=== PATIENT | female | born 1985 | race Caucasian/White ===

== ENCOUNTER 2017-08-19 07:52 | Emergency (ER) | payer SELFPAY ==
[2017-08-19] MEDS ORDERED: ONDANSETRON HCL INJ/PF 4 MG/2 ML SDV IV ONE (08:05)
[2017-08-19] MEDS ORDERED: NORMAL SALINE 1000 ML 1,000 ML IV ONE (08:06)
[2017-08-19] MEDS ORDERED: MORPHINE SULFATE 10 MG/ML INJ IV ONE (08:26)
[2017-08-19 08:35] LABS: ABSOLUTE BASOPHILS # (AUTO) 0.1 10^3/uL (0.0-0.2); ABSOLUTE EOSINOPHILS # (AUTO) 0.2 10^3/uL (0.0-0.6); ABSOLUTE MONOCYTES (AUTO) 0.5 10^3/uL (0.1-1.4); ABSOLUTE NEUT (AUTO) 14.6 10^3/uL (1.7-8.2); BASOPHILS % (AUTO) 0.4 % (0-2); EOSINOPHILS % (AUTO) 1.1 % (0-6); HEMATOCRIT 43.7 % (36.0-47.0); HEMOGLOBIN 14.5 g/dL (12.0-15.5); LYMPHOCYTES % (AUTO) 6.3 % (13-45); MEAN CORPUSCULAR HEMOGLOBIN 29.8 pg (27.0-33.4); MEAN CORPUSCULAR HGB CONC 33.3 g/dL (32.0-36.0); MEAN CORPUSCULAR VOLUME 90 fl (80-97); MONOCYTES % (AUTO) 2.8 % (3-13); PLATELET COUNT 263 10^3/uL (150-450); RED BLOOD COUNT 4.88 10^6/uL (3.72-5.28); RED CELL DISTRIBUTION WIDTH 13.3 % (11.5-14.0); SEGMENTED NEUTROPHILS % (AUTO) 89.4 % (42-78); TOTAL CELLS COUNTED % (AUTO) 100 %; WHITE BLOOD COUNT 16.4 10^3/uL (4.0-10.5)
[2017-08-19 08:54] LABS: ALANINE AMINOTRANSFERASE 33 U/L (9-52); ALBUMIN 3.9 g/dL (3.5-5.0); ALKALINE PHOSPHATASE 96 U/L (38-126); ANION GAP 8 (5-19); ASPARTATE AMINO TRANSFERASE 19 U/L (14-36); BILIRUBIN,DIRECT 0.2 mg/dL (0.0-0.4); BILIRUBIN,TOTAL 0.4 mg/dL (0.2-1.3); BLOOD UREA NITROGEN 8 mg/dL (7-20); CALCIUM 9.4 mg/dL (8.4-10.2); CARBON DIOXIDE 28 mmol/L (22-30); CHLORIDE 106 mmol/L (98-107); GLUCOSE 114 mg/dL (75-110); LIPASE 36.1 U/L (23-300); POTASSIUM 4.4 mmol/L (3.6-5.0); SODIUM 142.3 mmol/L (137-145); TOTAL PROTEIN 6.7 g/dL (6.3-8.2)
[2017-08-19] MEDS ORDERED: AMPICILLIN SOD/SULBACTAM 3 GM VIAL IV ONE (08:57)
--- NOTE | 2017-08-19 09:28 | ER Document Report ---
ED GI/ - General Chief Complaint: Abdominal Pain Stated Complaint: NAUSEA Time Seen by Provider: 08/19/17 08:05 Mode of Arrival: Ambulatory Information source: Patient Notes: Patient is a 32-year-old female who presents to the ER today for right upper quadrant abdominal pain that woke her out of sleep at 1 AM this morning with nausea and vomiting. Patient states that she had this also on 15 August that lasted approximately one day but subsided. Patient states last night for dinner she had fried sausage, fried eggs and toast. She states that she used to work third shift so she eats a lot of greasy food and fast food. She denies ever having issues with her gallbladder before. She denies fever that she knows of but states that she is sweaty and clammy and having chills with the pain since 1 AM. She denies any diarrhea. TRAVEL OUTSIDE OF THE [place] IN LAST 30 DAYS: No - Related Data Allergies/Adverse Reactions: No Known Allergies Allergy (Verified 08/19/17 07:57) Past Medical History - General Information source: Patient - Social History Smoking Status: Never Smoker Chew tobacco use (# tins/day): No Frequency of alcohol use: None Drug Abuse: Marijuana Family History: Reviewed & Not Pertinent Patient has suicidal ideation: No Patient has homicidal ideation: No Renal/ Medical History: Denies: Hx Peritoneal Dialysis Past Surgical History: Reports: Hx Tonsillectomy - Immunizations Hx Diphtheria, Pertussis, Tetanus Vaccination: Yes - 2008 Review of Systems - Review of Systems Constitutional: No symptoms reported EENT: No symptoms reported Cardiovascular: No symptoms reported Respiratory: No symptoms reported Gastrointestinal: See HPI Genitourinary: No symptoms reported Female Genitourinary: No symptoms reported Musculoskeletal: No symptoms reported Skin: No symptoms reported Hematologic/Lymphatic: No symptoms reported Neurological/Psychological: No symptoms reported Physical Exam - Vital signs Vitals: Temp Pulse Resp BP Pulse Ox 97.5 F 64 16 151/92 H 100 08/19/17 07:55 08/19/17 07:55 08/19/17 07:55 08/19/17 07:55 08/19/17 07:55 - Notes Notes: PHYSICAL EXAMINATION: GENERAL: Obviously uncomfortable, in mild acute distress. HEAD: Atraumatic, normocephalic. EYES: Pupils equal round and reactive to light, extraocular movements intact, sclera anicteric, conjunctiva are normal. NECK: Normal range of motion, supple without lymphadenopathy LUNGS: CTAB and equal. No wheezes rales or rhonchi. HEART: Regular rate and rhythm without murmurs ABDOMEN: Soft, right upper quadrant, epigastric tenderness. No guarding, no rebound BACK: no vertebral tenderness, normal ROM GI/: no CVA tenderness EXTREMITIES: Normal range of motion, no pitting edema. No cyanosis. NEUROLOGICAL: Cranial nerves grossly intact. Normal sensory/motor exams. PSYCH: Normal mood, normal affect. SKIN: Warm, Dry, normal turgor, no rashes or lesions noted Course - Re-evaluation Re-evalutation: 08/19/17 10:12 Patient has a white count is 16.4, Unasyn was started preemptively. Ultrasound reveals gallstones but no thickening, inflammation or signs of cholecystitis. Lipase is normal. Liver enzymes are normal. Patient feels much better after pain medication and nausea medication. She states that she is "100%" right now. I did offer to call the surgeon right now and see if he would take her gallbladder out today but she declines stating "I do not want to aguayo into getting it taken out." I will send her home with pain medication and nausea medication and have her follow-up with the surgeon outpatient if necessary. She is afebrile with normal vital signs today.I'm assuming at this point her leukocytosis is due to her actively vomiting/dry heaving when coming in. 08/19/17 14:19 - Vital Signs Vital signs: Temp Pulse Resp BP Pulse Ox 98.4 F 65 20 116/70 98 08/19/17 11:40 08/19/17 11:40 08/19/17 11:40 08/19/17 11:40 08/19/17 11:40 - Laboratory Result Diagrams: 08/19/17 08:19 08/19/17 08:19 Laboratory results interpreted by me: 08/19/17 08/19/17 08/19/17 08:19 08:19 09:38 WBC 16.4 H Seg Neutrophils % 89.4 H Lymphocytes % 6.3 L Monocytes % 2.8 L Absolute Neutrophils 14.6 H Glucose 114 H Urine Blood SMALL H Discharge - Discharge Clinical Impression: Gallstones Condition: Stable Disposition: HOME, SELF-CARE Additional Instructions: Return immediately for any new or worsening symptoms. Follow up with primary care provider/surgeon, call tomorrow to make followup appointment. Prescriptions: Ondansetron [Zofran Odt 4 mg Tablet] 1 - 2 tab PO Q4H PRN #30 tab.rapdis PRN Reason: For Nausea/Vomiting Oxycodone HCl/Acetaminophen [Percocet 5-325 mg Tablet] 1 - 2 tab PO Q4H PRN #15 tablet PRN Reason: Forms: Return to Work Referrals: SHERRY HINOJOSA MD [SOFTWARE REVERSE ENGINEER] - Follow up as needed
--- NOTE | 2017-08-19 09:55 | RADIOLOGY REPORT (SQ) ---
EXAM DESCRIPTION: U/S ABDOMEN LIMITED W/O DOP COMPLETED DATE/TIME: 08/19/2017 9:39 am REASON FOR STUDY: ruq pain nausea/vomiting COMPARISON: None. TECHNIQUE: Dynamic and static grayscale images acquired of the abdomen and recorded on PACS. Additio nal selected color Doppler and spectral images recorded. LIMITATIONS: None. FINDINGS: PANCREAS: No masses. Visualized pancreatic duct normal caliber. LIVER: Fatty liver. No focal masses. LIVER VASCULATURE: Normal directional flow of the main portal vein and hepatic veins. GALLBLADDER: Gallstone(s). No pericholecystic fluid. No wall thickening. ULTRASOUND-DETECTED PEREZ'S SIGN: Negative. INTRAHEPATIC DUCTS AND COMMON DUCT: CBD and intrahepatic ducts normal caliber. No filling defects. INFERIOR VENA CAVA: Normal flow. AORTA: No aneurysm. RIGHT KIDNEY: Normal size. Normal echogenicity. No solid or suspicious masses. No hydronephrosis. No calcifications. PERITONEAL AND RIGHT PLEURAL SPACE: No ascites or effusions. OTHER: No other significant findings. IMPRESSION: Gallstones. Fatty liver. TECHNICAL DOCUMENTATION: JOB ID: [id number]- All Rights Reserved
[2017-08-19 09:57] LABS: APPEARANCE,URINE CLEAR; BILIRUBIN,URINE NEGATIVE (NEGATIVE); COLOR,URINE YELLOW; GLUCOSE, URINE NEGATIVE (NEGATIVE); KETONES,URINE NEGATIVE (NEGATIVE); LEUKOCYTE ESTERASE,URINE NEGATIVE (NEGATIVE); NITRITE,URINE NEGATIVE (NEGATIVE); PROTEIN,URINE NEGATIVE (NEGATIVE); URINE SPECIFIC GRAVITY 1.016; UROBILINOGEN,URINE NEGATIVE mg/dL (<2.0)
[2017-08-19] MEDS ORDERED: FAMOTIDINE 20 MG TABLET PO ONE (10:15)
[2017-08-19] MEDS ORDERED: SUCRALFATE 1 GM TABLET PO ONE (10:15)
[2017-08-19 11:44] VITALS: BP 116/70
== END 2017-08-19 11:44 | disposition home or self-care (01) ==
LOC: ER 07:52
DX: K80.20 Calculus of gallbladder without cholecystitis without obstruction (principal); R10.11 Right upper quadrant pain; R11.2 Nausea with vomiting, unspecified; D72.829 Elevated white blood cell count, unspecified; R68.83 Chills (without fever); R61 Generalized hyperhidrosis
CPT/HCPCS: 99284; 96361; 96375; 96365; 36415; 87040; 83690; 85025; 81025; 80053; 81001; 76705; J0295; J2270; J2405; J7030

== ENCOUNTER 2017-09-29 07:51 | Emergency (ER) | payer MEDICAID, OTHER ==
[2017-09-29 08:13] VITALS: BP 138/94
[2017-09-29] MEDS ORDERED: ALBUTEROL SULFATE HFA (90 MCG/PUFF) 8 GM MDI (1 MDI/ER DISP) IH ONE (08:58)
[2017-09-29] MEDS ORDERED: DEXAMETHASONE 4 MG TABLET PO ONE (08:59)
--- NOTE | 2017-09-29 09:01 | ER Document Report ---
ED General - General Chief Complaint: Chest Congestion Stated Complaint: CONGESTION, COUGH, FATIGUE Time Seen by Provider: 09/29/17 08:54 Notes: 32-year-old female smoker presents with chest congestion cough and shortness of breath for 3 days with body aches but no fever. No sore throat. Positive diarrhea. Ill contacts. Smokes marijuana and new ports. Used to use a nebulizer. TRAVEL OUTSIDE OF THE [place] IN LAST 30 DAYS: No - Related Data Allergies/Adverse Reactions: No Known Allergies Allergy (Verified 09/29/17 07:52) Past Medical History - Social History Smoking Status: Current Every Day Smoker Smoking Education Provided: Yes - The patient ED visit today was directly related to their abuse of tobacco. Family History: Reviewed & Not Pertinent Renal/ Medical History: Denies: Hx Peritoneal Dialysis Past Surgical History: Reports: Hx Tonsillectomy - Immunizations Hx Diphtheria, Pertussis, Tetanus Vaccination: Yes - 2008 Review of Systems - Review of Systems Notes: REVIEW OF SYSTEMS GEN: Body aches ENT: Denies sore throat, nasal discharge, ear pain EYES: Denies blurry vision, eye pain, discharge CV: Lateral upper pleuritic chest pain, palpitations, edema RESP: Cough congestion shortness of breath g GI: Denies abdominal pain, nausea, vomiting, diarrhea MSK: Denies joint pain/swelling, edema, SKIN: Denies rash, skin lesions LYMPH: Denies swollen glands/lymph nodes NEURO: Denies headache, focal weakness or numbness, dizziness PSYCH: Denies depression, suicidal or homicidal ideation PHYSICAL EXAMINATION General: No acute distress, well-nourished Head: Atraumatic, normocephalic ENT: Mouth normal, oropharynx moist, no exudates or tonsillar enlargement Eyes: Conjunctiva normal, pupils equal, lids normal Neck: No JVD, supple, no guarding CVS: Normal rate, regular rhythm, no murmurs Resp: Decreased air entry with expiratory wheezing bilaterally, no distress GI: Nondistended, soft, no tenderness to palpation, no rebound or guarding Ext: No deformities, no edema, normal range of motion in upper and lower ext Back: No CVA or midline TTP Skin: No rash, warm Lymphatic: No lymphadeopathy noted Neuro: Awake, alert. Face symmetric. GCS 15. Physical Exam - Vital signs Vitals: Temp Pulse Resp BP Pulse Ox 98.8 F 101 H 18 138/94 H 91 L 09/29/17 08:12 09/29/17 08:12 09/29/17 08:12 09/29/17 08:12 09/29/17 08:12 Course - Re-evaluation Re-evalutation: 09/29/17 09:00 Signs and symptoms of acute bronchitis. X-ray to rule out pneumonia. Doubt flu. Smoker. Given single dose Decadron and inhaler to take home. We will do every 2 inhaler at home and follow-up with primary care regarding smoking cessation. 09/29/17 10:10 X-ray negative. Patient was given an inhaler and then use it. On repeat evaluation her wheezing is ceased and she feels much better. Her Decadron should last few days and she will use inhaler every 2. Smoking cessation instructions given. I have discussed with the patient there likely diagnosis, aftercare plan, follow-up plans and my usual and customary return precautions. They verbalized understanding of this. - Vital Signs Vital signs: Temp Pulse Resp BP Pulse Ox 98.8 F 101 H 18 138/94 H 91 L 09/29/17 08:12 09/29/17 08:12 09/29/17 08:12 09/29/17 08:12 09/29/17 08:12 - Diagnostic Test Radiology reviewed: Image reviewed, Reports reviewed Discharge - Discharge Clinical Impression: Acute bronchitis Qualifiers: Bronchitis organism: unspecified organism Qualified Code(s): J20.9 - Acute bronchitis, unspecified Condition: Good Disposition: HOME, SELF-CARE Instructions: Bronchitis (ON LICENSE OF [facility]) Additional Instructions: Use the inhaler we have given you every 2 hours as needed for shortness of breath and as you feel better you can space it out to every 4. Forms: Return to Work Referrals: JUAN MANUEL AL MD [Primary Care Provider] - Follow up as needed
--- NOTE | 2017-09-29 09:38 | RADIOLOGY REPORT (SQ) ---
EXAM DESCRIPTION: CHEST PA/LAT COMPLETED DATE/TIME: 09/29/2017 9:17 am REASON FOR STUDY: sob hypoxia COMPARISON: None. EXAM PARAMETERS: NUMBER OF VIEWS: two views TECHNIQUE: Digital Frontal and Lateral radiographic views of the chest acquired. RADIATION DOSE: NA LIMITATIONS: none FINDINGS: LUNGS AND PLEURA: No opacities, masses or pneumothorax. No pleural effusion. MEDIASTINUM AND HILAR STRUCTURES: No masses or contour abnormalities. HEART AND VASCULAR STRUCTURES: Heart normal size. No evidence for failure. BONES: No acute findings. HARDWARE: None in the chest. OTHER: No other significant finding. IMPRESSION: NO SIGNIFICANT RADIOGRAPHIC FINDING IN THE CHEST. TECHNICAL DOCUMENTATION: JOB ID: [id number] [employer]- All Rights Reserved
== END 2017-09-29 09:55 | disposition home or self-care (01) ==
LOC: ER 07:51
DX: J20.9 Acute bronchitis, unspecified (principal); R09.89 Other specified symptoms and signs involving the circulatory and respiratory systems; R07.81 Pleurodynia; R00.2 Palpitations; R60.9 Edema, unspecified; R05 Cough; R06.02 Shortness of breath; R06.2 Wheezing; R19.7 Diarrhea, unspecified; F17.210 Nicotine dependence, cigarettes, uncomplicated
CPT/HCPCS: 99283; 71046; J3490

== ENCOUNTER 2018-08-28 09:28 | Inpatient (IN) | payer OTHER ==
--- NOTE | 2018-08-28 09:47 | ER Document Report ---
ED Medical Screen (RME) - General Chief Complaint: Abdominal Pain Stated Complaint: THROWING UP Time Seen by Provider: 08/28/18 09:43 Notes: RAPID MEDICAL EVALUATION DISCLOSURE I have seen this patient as part of a Rapid Medical Evaluation and, if applicable, placed any initially appropriate orders. The patient will be seen and fully evaluated, including a full history and physical exam, by a provider (in Main ED or Fast Track) when a room becomes available. 33-year-old female here with complaints of epigastric abdominal pain that started approximately 6-7 hours ago. She has had associated nausea vomiting diarrhea and cold sweats. She soaked herself in a bathtub filled with hot water and states this helped with her pain however she did not take any medication for the pain. She reports this feels like 1 of her "gallbladder attacks". She reports having "8-12 gallstones in my gallbladder" that were discovered one year ago when she had her last gallbladder attack. She was told to follow-up outpatient with the surgeon however she did not and, upon questioning, cannot provide a reason why she did not follow-up after being instructed to do so. She is requesting that we take her gallbladder out today, here in the ER. EXAM Well-appearing nontoxic No abdominal TTP No peritoneal signs TRAVEL OUTSIDE OF THE [place] IN LAST 30 DAYS: No - Related Data Allergies/Adverse Reactions: No Known Allergies Allergy (Verified 08/28/18 09:30) Past Medical History Renal/ Medical History: Denies: Hx Peritoneal Dialysis Past Surgical History: Reports: Hx Tonsillectomy - Immunizations Hx Diphtheria, Pertussis, Tetanus Vaccination: Yes - 2008 Physical Exam - Vital signs Vitals: Temp Pulse Resp BP Pulse Ox 98.2 F 78 20 134/87 H 98 08/28/18 09:35 08/28/18 09:35 08/28/18 09:35 08/28/18 09:35 08/28/18 09:35 Course - Vital Signs Vital signs: Temp Pulse Resp BP Pulse Ox 98.2 F 78 20 134/87 H 98 08/28/18 09:35 08/28/18 09:35 08/28/18 09:35 08/28/18 09:35 08/28/18 09:35 Doctor's Discharge - Discharge Referrals: JUAN MANUEL AL MD [Primary Care Provider] - Follow up as needed
[2018-08-28 10:04] LABS: ABSOLUTE BASOPHILS # (AUTO) 0.1 10^3/uL (0.0-0.2); ABSOLUTE EOSINOPHILS # (AUTO) 0.4 10^3/uL (0.0-0.6); ABSOLUTE LYMPHOCYTES (AUTO) 1.6 10^3/uL (0.5-4.7); ABSOLUTE MONOCYTES (AUTO) 0.6 10^3/uL (0.1-1.4); BASOPHILS % (AUTO) 0.6 % (0-2); EOSINOPHILS % (AUTO) 2.4 % (0-6); HEMATOCRIT 43.1 % (36.0-47.0); MEAN CORPUSCULAR HEMOGLOBIN 31.2 pg (27.0-33.4); MEAN CORPUSCULAR HGB CONC 34.8 g/dL (32.0-36.0); MEAN CORPUSCULAR VOLUME 90 fl (80-97); MONOCYTES % (AUTO) 4.4 % (3-13); PLATELET COUNT 225 10^3/uL (150-450); RED CELL DISTRIBUTION WIDTH 13.6 % (11.5-14.0); SEGMENTED NEUTROPHILS % (AUTO) 81.6 % (42-78); TOTAL CELLS COUNTED % (AUTO) 100 %; WHITE BLOOD COUNT 14.7 10^3/uL (4.0-10.5)
[2018-08-28 10:13] LABS: ALANINE AMINOTRANSFERASE 33 U/L (9-52); ALBUMIN 4.2 g/dL (3.5-5.0); ALKALINE PHOSPHATASE 91 U/L (38-126); ANION GAP 8 (5-19); ASPARTATE AMINO TRANSFERASE 23 U/L (14-36); BILIRUBIN,DIRECT 0.2 mg/dL (0.0-0.4); BILIRUBIN,TOTAL 0.7 mg/dL (0.2-1.3); BLOOD UREA NITROGEN 10 mg/dL (7-20); CALCIUM 9.3 mg/dL (8.4-10.2); CARBON DIOXIDE 24 mmol/L (22-30); CHLORIDE 108 mmol/L (98-107); GLUCOSE 102 mg/dL (75-110); LIPASE 35.3 U/L (23-300); POTASSIUM 4.6 mmol/L (3.6-5.0); SODIUM 140.2 mmol/L (137-145); TOTAL PROTEIN 6.9 g/dL (6.3-8.2)
[2018-08-28] MEDS ORDERED: METOCLOPRAMIDE HCL ORAL SOLN 10 MG/10 ML UDCUP PO ONE (10:18)
[2018-08-28] MEDS ORDERED: MAG HYDROX/AL HYDROX/SIMETH SUSP 30 ML UDCUP PO ONE (10:18)
[2018-08-28] MEDS ORDERED: NORMAL SALINE 1000 ML 1,000 ML IV ONE (10:18)
[2018-08-28] MEDS ORDERED: LIDOCAINE 2% VISCOUS SOLN 20 ML UDCUP PO ONE (10:18)
--- NOTE | 2018-08-28 10:22 | ER Document Report ---
ED General - General Chief Complaint: Abdominal Pain Stated Complaint: THROWING UP Time Seen by Provider: 08/28/18 09:43 TRAVEL OUTSIDE OF THE [place] IN LAST 30 DAYS: No - HPI Notes: Patient is a 33-year-old female who presents to the emergency department complaining of epigastric abdominal pain that began early this morning with associated nausea and vomiting. Patient states that she has had about 4 ep isodes of emesis without any hematemesis or coffee-ground. Patient states that she has not noticed any significant changes with food and her last p.o. intake was last night for dinner. Patient states that she does have a history of gallstones and was told in the past that she needed her gallbladder taken out, but could not get the time off of work to get an evaluation performed. Patient states that the pain has since improved as well as her nausea after taking Zofran. Patient states that she is urinating normally and having normal bowel movements. The pain does not radiate. No significant cardiopulmonary medical history or recent illness otherwise. Denies drug allergies. Denies any h eadache, fever, URI, sore throat, chest pain, palpitations, syncope, cough, shortness of breath, wheeze, dyspnea, diarrhea, urinary retention, dysuria, hematuria, back pain, or rash. - Related Data Allergies/Adverse Reactions: No Known Allergies Allergy (Verified 08/28/18 09:30) Past Medical History - Social History Smoking Status: Current Some Day Smoker Chew tobacco use (# tins/day): No Frequency of alcohol use: Occasional Drug Abuse: None Family History: Reviewed & Not Pertinent Patient has suicidal ideation: No Patient has homicidal ideation: No Renal/ Medical History: Denies: Hx Peritoneal Dialysis Past Surgical History: Reports: Hx Tonsillectomy - Immunizations Hx Diphtheria, Pertussis, Tetanus Vaccination: Yes - 2008 Review of Systems - Review of Systems -: Yes All other systems reviewed and negative Physical Exam - Vital signs Vitals: Temp Pulse Resp BP Pulse Ox 98.2 F 78 20 134/87 H 98 08/28/18 09:35 08/28/18 09:35 08/28/18 09:35 08/28/18 09:35 08/28/18 09:35 - Notes Notes: PHYSICAL EXAMINATION: GENERAL: Well-appearing, well-nourished and in no acute distress. HEAD: Atraumatic, normocephalic. EYES: Pupils equal round and reactive to light, extraocular movements intact, sclera anicteric, conjunctiva are normal. ENT: Nares patent and without discharge. oropharynx clear without exudates. No tonsilar hypertrophy or erythema. Moist mucous membranes. NECK: Normal range of motion, supple without lymphadenopathy LUNGS: Breath sounds clear to auscultation bilaterally and equal. No wheezes rales or rhonchi. HEART: Regular rate and rhythm without murmurs, rubs, gallops. ABDOMEN: Soft, nondistended abdomen. No guarding, no rebound. No masses appreciated. Normal bowel sounds present. No CVA tenderness bilaterally. + tenderness to the epigastrum. Melendez negative. No tenderness at McBurney. Musculoskeletal: FROM to passive/active. Strength 5+/5. Extremities: No cyanosis, clubbing, or edema b/l. Peripheral pulses 2+. Capillary refill less than 3 seconds. NEUROLOGICAL: Cranial nerves grossly intact. Normal speech, normal gait. Normal sensory, motor exams PSYCH: Normal mood, normal affect. SKIN: Warm, Dry, normal turgor, no rashes or lesions noted. Course - Re-evaluation Re-evalutation: 08/28/18 13:15 Lab work is grossly unremarkable aside from a mildly elevated white count with left shift. Patient does have gallstones on her ultrasound without evidence of cholecystitis and no tenderness on exam. Patient has been nontoxic-appearing and has not had any episodes of emesis throughout her stay. Because of the questionable nature of her symptoms with an elevated white count I did consult with our general surgeon, Dr. Barakat, who will come evaluate the patient for his recommendation(s). 08/28/18 13:47 Dr. Barakat will be keeping the patient for cholecystectomy. Pt in agreement with plan. Pt has been NPO since last evening. - Vital Signs Vital signs: Temp Pulse Resp BP Pulse Ox 98.8 F 80 16 121/76 99 08/28/18 12:31 08/28/18 12:31 08/28/18 12:31 08/28/18 12:31 08/28/18 12:31 - Laboratory Result Diagrams: 08/28/18 09:49 08/28/18 09:49 Laboratory results interpreted by me: 08/28/18 08/28/18 09:49 09:49 WBC 14.7 H Seg Neutrophils % 81.6 H Lymphocytes % 11.0 L Absolute Neutrophils 12.0 H Chloride 108 H Creatinine 0.51 L Discharge - Discharge Clinical Impression: Cholelithiasis Qualifiers: Cholelithiasis location: gallbladder Cholecystitis presence: without cholecystitis Biliary obstruction: without biliary obstruction Qualified Code(s): K80.20 - Calculus of gallbladder without cholecystitis without obstruction Abdominal pain Qualifiers: Abdominal location: upper abdomen, unspecified Qualified Code(s): R10.10 - Upper abdominal pain, unspecified Condition: Stable Disposition: ADMITTED INPATIENT Admitting Provider: Surgicalist - Dr. Barakat Unit Admitted: Surgical Floor Referrals: JUAN MANUEL AL MD [Primary Care Provider] - Follow up as needed
--- NOTE | 2018-08-28 12:30 | RADIOLOGY REPORT (SQ) ---
EXAM DESCRIPTION: U/S ABDOMEN LIMITED W/O DOP COMPLETED DATE/TIME: 08/28/2018 12:18 pm REASON FOR STUDY: upper abd pain, h/o gallstones COMPARISON: None. TECHNIQUE: Dynamic and static grayscale images acquired of the abdomen and recorded on PACS. Additio harris selected color Doppler and spectral images recorded. LIMITATIONS: None. FINDINGS: PANCREAS: No masses. Visualized pancreatic duct normal caliber. LIVER: No masses. Echotexture normal. LIVER VASCULATURE: Normal directional flow of the main portal vein and hepatic veins. GALLBLADDER: Large shadowing gallstone. Normal wall thickness. No pericholecystic fluid. ULTRASOUND-DETECTED PEREZ'S SIGN: Negative. INTRAHEPATIC DUCTS AND COMMON DUCT: CBD and intrahepatic ducts normal caliber. No filling defects. INFERIOR VENA CAVA: Normal flow. AORTA: No aneurysm. RIGHT KIDNEY: Normal size. Normal echogenicity. No solid or suspicious masses. No hydronephrosis. No calcifications. PERITONEAL AND RIGHT PLEURAL SPACE: No ascites or effusions. OTHER: No other significant findings. IMPRESSION: Cholelithiasis without evidence of acute cholecystitis. TECHNICAL DOCUMENTATION: JOB ID: [id number] [employer]- All Rights Reserved Reading location - IP/workstation name: [id number]
--- NOTE | 2018-08-28 13:40 | PDOC H&P ---
History of Present Illness Admission Date/PCP: JUAN MANUEL AL MD Patient complains of: Abdominal pain History of Present Illness: DEEDEE DILLON is a 33 year old female Usual state of excellent health until early this morning when she was awoken with a severe subxiphoid abdominal pain along with nausea and vomiting and diarrhea. The abdominal pain has gradually improved. She denies any jaundice. She has been experiencing some hotness and chills at night. Patient has known history of gallstones and has had 3 prior episodes of this sort of pain that typically lasts for several hours. She has had no recent weight loss although she has gained about 15 pounds of weight over the past year. She has had no prior abdominal surgeries. Past Medical History Medical History: None Cardiac Medical History: Reports: None Pulmonary Medical History: Reports: None EENT Medical History: Reports: Other - History of tonsillectomy in the remote past. Neurological Medical History: Reports: None Endocrine Medical History: Reports: None Malignancy Medical History: Reports: None GI Medical History: Reports: Other - Known gallstones Psychiatric Medical History: Reports: None Traumatic Medical History: Reports: None Hematology: Reports: None Infectious Medical History: Reports: None Past Surgical History Past Surgical History: Reports: Tonsillectomy Social History Smoking Status: Current Some Day Smoker Frequency of Alcohol Use: Occasional Hx Recreational Drug Use: No Hx Prescription Drug Abuse: No Family History Family History: Reviewed & Not Pertinent Parental Family History Reviewed: No Children Family History Reviewed: No Sibling(s) Family History Reviewed.: No Medication/Allergy Home Medications: No Home Medications 08/28/18 Allergies/Adverse Reactions: No Known Allergies Allergy (Verified 08/28/18 09:30) Review of Systems All systems: reviewed and no additional remarkable complaints except as stated Constitutional: PRESENT: weight loss, other - Feel hot with some sweats at night. Gastrointestinal: PRESENT: as per HPI Physical Exam Vital Signs: Temp Pulse Resp BP Pulse Ox 98.8 F 80 16 121/76 99 08/28/18 12:31 08/28/18 12:31 08/28/18 12:31 08/28/18 12:31 08/28/18 12:31 Intake & Output 08/27/18 08/28/18 08/29/18 06:59 06:59 06:59 Weight 97.7 kg General appearance: PRESENT: no acute distress, cooperative Eye exam: PRESENT: conjunctiva pink Neck exam: PRESENT: other - Supple with no masses and no tenderness Respiratory exam: PRESENT: clear to auscultation abeba Cardiovascular exam: PRESENT: RRR GI/Abdominal exam: PRESENT: other - Soft, nondistended, tenderness at the right upper quadrant and the subxiphoid region without peritoneal signs. Extremities exam: PRESENT: other - No swelling Neurological exam: PRESENT: alert, awake Psychiatric exam: PRESENT: appropriate affect Skin exam: PRESENT: warm Results Laboratory Results: 08/28/18 09:49 08/28/18 09:49 08/28/18 08/28/18 09:49 09:49 WBC 14.7 H RBC 4.80 Hgb 15.0 Hct 43.1 MCV 90 MCH 31.2 MCHC 34.8 RDW 13.6 Plt Count 225 Seg Neutrophils % 81.6 H Lymphocytes % 11.0 L Monocytes % 4.4 Eosinophils % 2.4 Basophils % 0.6 Absolute Neutrophils 12.0 H Absolute Lymphocytes 1.6 Absolute Monocytes 0.6 Absolute Eosinophils 0.4 Absolute Basophils 0.1 Sodium 140.2 Potassium 4.6 Chloride 108 H Carbon Dioxide 24 Anion Gap 8 BUN 10 Creatinine 0.51 L Est GFR ( Amer) > 60 Est GFR (Non-Af Amer) > 60 Glucose 102 Calcium 9.3 Total Bilirubin 0.7 AST 23 ALT 33 Alkaline Phosphatase 91 Total Protein 6.9 Albumin 4.2 Lipase 35.3 Impressions: Abdomen Ultrasound 08/28/18 09:44 IMPRESSION: Cholelithiasis without evidence of acute cholecystitis. Assessment & Plan - Diagnosis (1) Cholecystitis, acute with cholelithiasis Is this a current diagnosis for this admission?: Yes Plan: Although patient does not have gallbladder wall thickening on ultrasound she does have stones and she is tender in the right upper quadrant therefore her presentation all consistent with acute cholecystitis. I have recommended laparoscopic cholecystectomy to the patient. I have discussed with the patient the risk and benefits of the surgery including risk of conversion to an open procedure, infection, bleeding, mistaken diagnosis, postcholecystectomy diarrhea, bile duct and intestinal injury. Patient understands and agrees to proceed.
[2018-08-28] MEDS ORDERED: SUCCINYLCHOLINE CHLORIDE INJ 200 MG/10 ML VIAL ONE (13:47)
[2018-08-28] MEDS ORDERED: ROCURONIUM BROMIDE INJ 50 MG/5 ML VIAL IV ONE (13:47)
[2018-08-28] MEDS ORDERED: BUPIVACAINE HCL 0.25 % INJ/PF (2.5 MG/1 ML) 30 ML VIAL ONE (16:19)
[2018-08-28] MEDS ORDERED: ONDANSETRON HCL INJ/PF 4 MG/2 ML SDV ONE (16:20)
[2018-08-28] MEDS ORDERED: DEXAMETHASONE SOD PHOSPHATE INJ 4 MG/1 ML VIAL ONE (16:20)
[2018-08-28] MEDS ORDERED: MIDAZOLAM 2 MG/2 ML INJ ONE (16:20)
[2018-08-28] MEDS ORDERED: FENTANYL CITRATE INJ/PF 100 MCG/2 ML AMPUL ONE (16:20)
[2018-08-28] MEDS ORDERED: PROPOFOL INJ 200 MG/20 ML VIAL IV ONE (16:21)
[2018-08-28] MEDS ORDERED: SUGAMMADEX SODIUM 200 MG/2 ML SDV IV ONE (16:21)
[2018-08-28] MEDS ORDERED: ACETAMINOPHEN 1,000 MG/100 ML RTUPB IV ONE (16:21)
[2018-08-28] MEDS ORDERED: CEFAZOLIN INJ 1 GM VIAL ONE (16:52)
[2018-08-28] MEDS ORDERED: MEPERIDINE HCL/PF INJ 25 MG/1 ML DISP.SYRIN IV PRN (17:03)
[2018-08-28] MEDS ORDERED: FENTANYL CITRATE INJ/PF 100 MCG/2 ML AMPUL IV PRN ×3 (17:03)
[2018-08-28] MEDS ORDERED: PROMETHAZINE HCL INJ 25 MG/1 ML VIAL IV PRN ×2 (17:03)
[2018-08-28] MEDS ORDERED: DIPHENHYDRAMINE HCL 50 MG/ML VIAL IV PRN (17:03)
[2018-08-28] MEDS ORDERED: ONDANSETRON HCL INJ/PF 4 MG/2 ML SDV IV PRN ×2 (17:03→18:10)
[2018-08-28] MEDS ORDERED: MORPHINE SULFATE 10 MG/ML INJ IV PRN (17:03)
[2018-08-28] MEDS: FENTANYL CITRATE INJ/PF 100 MCG/2 ML AMPUL ONE ×3 (18:16→18:34)
--- NOTE | 2018-08-28 18:19 | Operative Report ---
Operative Report DATE OF SURGERY: 08/28/18 PREOPERATIVE DIAGNOSIS: Cholecystitis POSTOPERATIVE DIAGNOSIS: cholecystitis with cholelithiasis. OPERATION: Laparoscopic cholecystectomy SURGEON: MARTA BARNES ANESTHESIA: GA TISSUE REMOVED OR ALTERED: Gallbladder COMPLICATIONS: None ESTIMATED BLOOD LOSS: Minimal INTRAOPERATIVE FINDINGS: Distended gallbladder with edematous wall, gallstone PROCEDURE: Informed consent was obtained. Patient was brought to the operating room placed operating table in supine position. After satisfactory induction of general anesthesia, patient's abdomen was prepped and draped in usual sterile fashion. A infraumbilical midline incision was made and dissection carried down to the fascia the peritoneal cavity entered without difficulty. Azul trocar was inserted. Pneumoperitoneum produced good patient toleration. 5 mm trocar was placed in the subxiphoid location.Two 5 mm trochars were placed in the right subcostal location. The gallbladder appeared distended and edematous. The liver was slightly enlarged making the exposure more difficult. The gallbladder was grasped and retracted cephalad over the dome of the liver. The infundibulum of the gallbladder was grasped retracted laterally and inferiorly thus exposing calot's triangle. There was a Calot's node which was dissected off Calot's triangle. The cystic duct gallbladder junction was clearly identified and the cystic duct was clipped and divided. Cystic artery was likewise taken. There was a posterior cystic artery which was also clipped and divided. The gallbladder was taken off the gallbladder bed using the hook electrocautery technique. The gallbladder was removed with an Endobag through the Azul trocar site fascial defect. The gallbladder was palpated revealing at least one large stone. The operative field was irrigated and irrigant aspirated out. Irrigation fluid was perfectly clear at the end of the case. Hemostasis appeared excellent. All trochars were removed under the direct vision of the laparoscope to ensure hemostasis. The Azul trocar site fascial defect was closed with interrupted Vicryl sutures. All skin incisions were closed with subcuticular interrupted Monocryl sutures. Marcaine was injected at the port sites. Patient tolerated procedure well no apparent complications and was taken to the recovery area in stable condition.
[2018-08-28] MEDS ORDERED: SCOPOLAMINE HYDROBROMIDE 1.5 MG PATCH.TD72 ONE (18:21)
[2018-08-28] MEDS ORDERED: METOCLOPRAMIDE HCL INJ/PF 10 MG/2 ML SDV ONE (18:21)
[2018-08-28] MEDS ORDERED: PROMETHAZINE HCL INJ 25 MG/1 ML VIAL ONE (18:54)
[2018-08-28] MEDS ORDERED: KETOROLAC TROMETHAMINE INJ/PF 30 MG/1 ML SDV ONE (18:54)
[2018-08-28] MEDS ORDERED: DIPHENHYDRAMINE HCL 50 MG/ML VIAL ONE (19:00)
[2018-08-28] MEDS: MORPHINE SULFATE 10 MG/ML INJ IV PRN (22:31)
[2018-08-28] MEDS: NORMAL SALINE 1000 ML 1,000 ML IV PRN (22:32)
[2018-08-29] MEDS: MORPHINE SULFATE 10 MG/ML INJ IV PRN (04:03)
[2018-08-29] MEDS: NORMAL SALINE 1000 ML 1,000 ML IV PRN (06:33)
[2018-08-29 08:09] LABS: ALANINE AMINOTRANSFERASE 30 U/L (9-52); ALBUMIN 3.4 g/dL (3.5-5.0); ALKALINE PHOSPHATASE 63 U/L (38-126); ANION GAP 9 (5-19); ASPARTATE AMINO TRANSFERASE 27 U/L (14-36); BILIRUBIN,DIRECT 0.2 mg/dL (0.0-0.4); BILIRUBIN,TOTAL 0.6 mg/dL (0.2-1.3); BLOOD UREA NITROGEN 6 mg/dL (7-20); CALCIUM 8.5 mg/dL (8.4-10.2); CARBON DIOXIDE 23 mmol/L (22-30); CHLORIDE 109 mmol/L (98-107); GLUCOSE 123 mg/dL (75-110); POTASSIUM 4.1 mmol/L (3.6-5.0); SODIUM 141.1 mmol/L (137-145)
[2018-08-29] MEDS ORDERED: HYDROCODONE/ACETAMINOPHEN 10-325 MG TABLET PO PRN (08:53)
--- NOTE | 2018-08-29 08:58 | PDOC DISCHARGE SUMMARY ---
General - Admit/Disc Date/PCP Admission Date/Primary Care Provider: 08/28/18 13:48 JUAN MANUEL AL MD Discharge Date: 08/29/18 - Discharge Diagnosis (1) Cholecystitis, acute with cholelithiasis Is this a current diagnosis for this admission?: Yes - Additional Information Resuscitation Status: Full Code Discharge Activity: No Lifting Over 10 Pounds Home Medications: No Home Medications 08/28/18 History of Present Illness History of Present Illness: DEEDEE DILLON is a 33 year old female admitted with acute cholecystitis. She was taken to surgery for definitive treatment. She tolerated the procedure well and was taken to the floor in stable condition. Hospital Course Hospital Course: After laparoscopic cholecystectomy, the pt was taken to the floor. She did well. She began tolerating a diet, ambulating, and her pain was controlled. By 08/29/17 it was felt that the pt had reached maximal hospital benefit and was fit for discharge. Physical Exam Vital Signs: Temp Pulse Resp BP Pulse Ox 98.2 F 80 18 126/75 H 99 08/29/18 08:06 08/29/18 08:06 08/29/18 08:06 08/29/18 08:06 08/29/18 08:06 Intake & Output 08/28/18 08/29/18 08/30/18 06:59 06:59 06:59 Intake Total 4802 Output Total 1015 Balance 3787 Weight 95.8 kg Results Laboratory Results: 08/28/18 09:49 08/29/18 06:51 08/28/18 08/28/18 08/29/18 09:49 09:49 06:51 WBC 14.7 H RBC 4.80 Hgb 15.0 Hct 43.1 MCV 90 MCH 31.2 MCHC 34.8 RDW 13.6 Plt Count 225 Seg Neutrophils % 81.6 H Lymphocytes % 11.0 L Monocytes % 4.4 Eosinophils % 2.4 Basophils % 0.6 Absolute Neutrophils 12.0 H Absolute Lymphocytes 1.6 Absolute Monocytes 0.6 Absolute Eosinophils 0.4 Absolute Basophils 0.1 Sodium 140.2 141.1 Potassium 4.6 4.1 Chloride 108 H 109 H Carbon Dioxide 24 23 Anion Gap 8 9 BUN 10 6 L Creatinine 0.51 L 0.48 L Est GFR ( Amer) > 60 > 60 Est GFR (Non-Af Amer) > 60 > 60 Glucose 102 123 H Calcium 9.3 8.5 Total Bilirubin 0.7 0.6 AST 23 27 ALT 33 30 Alkaline Phosphatase 91 63 Total Protein 6.9 6.0 L Albumin 4.2 3.4 L Lipase 35.3 Impressions: Abdomen Ultrasound 08/28/18 09:44 IMPRESSION: Cholelithiasis without evidence of acute cholecystitis. Qualifiers - * PATIENT BEING DISCHARGED WITH ANY OF THE FOLLOWING DIAGNOSIS: No Plan Discharge Plan: d/c home. Diet as tolerated. Activity: no lifting >10 lbs x 2 weeks. OK to shower tomorrow. No tub baths or swimming pools x 2 weeks. Chapin 10/325 mg PO q6 hrs PRN pain. Time Spent: Less than 30 Minutes
[2018-08-29 10:50] VITALS: BP 147/86
== END 2018-08-29 11:37 | disposition home or self-care (01) | DRG 419 ==
LOC: ER 09:28 → EH 13:48 → 2N 19:42 → UNDODISIN 08-29 11:37
PROVIDERS: ADMIT Surgery; ATTEND Surgery
PROC: 0FT44ZZ Resection of Gallbladder, Percutaneous Endoscopic Approach (ICD-10-PCS; principal; 2018-08-28 15:00)
DX: K80.00 Calculus of gallbladder with acute cholecystitis without obstruction (principal); F17.200 Nicotine dependence, unspecified, uncomplicated
CPT/HCPCS: 36415; 76705; 790; 80053; 81025; 83690; 85025; 88304; 96360; 96361; 99285; J0131; J0330; J0690; J1100; J1200; J1885; J2250; J2270; J2405; J2550; J2704; J2765; J3010; J3490; J7030

== ENCOUNTER 2019-03-18 11:52 | Emergency (ER) | payer SELFPAY ==
[2019-03-18] MEDS ORDERED: ONDANSETRON HCL INJ/PF 4 MG/2 ML SDV IV ONE (12:23)
--- NOTE | 2019-03-18 12:25 | ER Document Report ---
ED Medical Screen (RME) - General Chief Complaint: Vomiting/Diarrhea Stated Complaint: VOMITING Time Seen by Provider: 03/18/19 12:20 Primary Care Provider: JUAN MANUEL AL MD [Primary Care Provider] - Follow up as needed TRAVEL OUTSIDE OF THE [place] IN LAST 30 DAYS: No - HPI Notes: 03/18/19 12:23 Patient is a 33-year-old female with history of cholecystectomy who presents complaining of nausea, vomiting, and watery diarrhea that began 2 days ago, early Monday morning. Patient states that she started feeling better yesterday and started eating again, but her symptoms resumed thereafter. Patient states that she did vomit in the waiting room. She has not noticed any hematemesis. Patient states that she will have generalized abdominal cramping, but primarily to her lower abdomen. No other vaginal discharge, odor, or bleeding. Denies MCLEOD, fever, neck pain, URI, CP, SOB, dysuria, back pain, or rash. I have treated and performed a rapid initial assessment of this patient. A comprehensive ED assessment and evaluation of the patient, analysis of test results and completion of medical decision making process will be conducted by additional ED providers. PHYSICAL EXAMINATION: GENERAL: Well-appearing, well-nourished and in no acute distress. A&Ox4. Answers questions appropriately. LUNGS: Breath sounds clear to auscultation bilaterally and equal. No wheezes rales or rhonchi. HEART: Regular rate and rhythm without murmurs, rubs, gallops. ABDOMEN: Soft, nondistended abdomen. No guarding, no rebound. Normal bowel sounds present. No CVA tenderness bilaterally. Grossly nontender (cannot elicit thorough abd exam w/o bed, however). - Related Data Allergies/Adverse Reactions: No Known Allergies Allergy (Verified 03/18/19 11:56) Past Medical History Renal/ Medical History: Denies: Hx Peritoneal Dialysis Past Surgical History: Reports: Hx Tonsillectomy - Immunizations Hx Diphtheria, Pertussis, Tetanus Vaccination: Yes - 2008 History of Influenza Vaccine for 05/2017 - 10/2017 Season: No Physical Exam - Vital signs Vitals: Temp Pulse Resp BP Pulse Ox 98.0 F 67 16 152/93 H 97 03/18/19 11:59 03/18/19 11:59 03/18/19 11:59 03/18/19 11:59 03/18/19 11:59 Course - Vital Signs Vital signs: Temp Pulse Resp BP Pulse Ox 98.0 F 67 16 152/93 H 97 03/18/19 11:59 03/18/19 11:59 03/18/19 11:59 03/18/19 11:59 03/18/19 11:59 Doctor's Discharge - Discharge Referrals: JUAN MANUEL AL MD [Primary Care Provider] - Follow up as needed
[2019-03-18] MEDS: NORMAL SALINE 1000 ML 1,000 ML IV PRN ×2 (12:45→14:44)
[2019-03-18 13:03] LABS: ABSOLUTE EOSINOPHILS # (AUTO) 0.1 10^3/uL (0.0-0.6); ABSOLUTE LYMPHOCYTES (AUTO) 1.2 10^3/uL (0.5-4.7); ABSOLUTE MONOCYTES (AUTO) 0.6 10^3/uL (0.1-1.4); ABSOLUTE NEUT (AUTO) 14.9 10^3/uL (1.7-8.2); BASOPHILS % (AUTO) 0.2 % (0-2); EOSINOPHILS % (AUTO) 0.3 % (0-6); HEMATOCRIT 47.1 % (36.0-47.0); HEMOGLOBIN 16.1 g/dL (12.0-15.5); MEAN CORPUSCULAR HEMOGLOBIN 30.8 pg (27.0-33.4); MEAN CORPUSCULAR HGB CONC 34.1 g/dL (32.0-36.0); MEAN CORPUSCULAR VOLUME 90 fl (80-97); MONOCYTES % (AUTO) 3.6 % (3-13); PLATELET COUNT 290 10^3/uL (150-450); RED BLOOD COUNT 5.21 10^6/uL (3.72-5.28); SEGMENTED NEUTROPHILS % (AUTO) 88.9 % (42-78); TOTAL CELLS COUNTED % (AUTO) 100 %; WHITE BLOOD COUNT 16.8 10^3/uL (4.0-10.5)
[2019-03-18 13:09] LABS: APPEARANCE,URINE CLOUDY; BILIRUBIN,URINE NEGATIVE (NEGATIVE); COLOR,URINE AMBER; GLUCOSE, URINE NEGATIVE (NEGATIVE); KETONES,URINE TRACE mg/dL (NEGATIVE); LEUKOCYTE ESTERASE,URINE NEGATIVE (NEGATIVE); NITRITE,URINE NEGATIVE (NEGATIVE); PROTEIN,URINE 30 mg/dL (NEGATIVE); URINE SPECIFIC GRAVITY 1.032; UROBILINOGEN,URINE NEGATIVE mg/dL (<2.0)
[2019-03-18 13:34] LABS: ALANINE AMINOTRANSFERASE 40 U/L (9-52); ALBUMIN 4.6 g/dL (3.5-5.0); ALKALINE PHOSPHATASE 103 U/L (38-126); ANION GAP 8 (5-19); ASPARTATE AMINO TRANSFERASE 40 U/L (14-36); BILIRUBIN,DIRECT 0.3 mg/dL (0.0-0.4); BILIRUBIN,TOTAL 0.7 mg/dL (0.2-1.3); BLOOD UREA NITROGEN 13 mg/dL (7-20); CARBON DIOXIDE 30 mmol/L (22-30); CHLORIDE 104 mmol/L (98-107); GLUCOSE 109 mg/dL (75-110); POTASSIUM 4.4 mmol/L (3.6-5.0); TOTAL PROTEIN 7.7 g/dL (6.3-8.2)
[2019-03-18] MEDS ORDERED: PROMETHAZINE HCL 25 MG SUPP.RECT PR ONE (14:44)
--- NOTE | 2019-03-18 14:49 | ER Document Report ---
ED General - General Chief Complaint: Vomiting/Diarrhea Stated Complaint: VOMITING Time Seen by Provider: 03/18/19 12:20 Primary Care Provider: JUAN MANUEL AL MD [ACTIVE STAFF] - Follow up in 1 week Mode of Arrival: Ambulatory Information source: Patient Notes: This 33-year-old female presents emergency department with complaints of vomiting. 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 She reports she did have diarrhea also. She reports she felt a little bit better on Monday he was even able to eat a slice of pizza. Symptoms return. She is now unable to even drink water without vomiting. Denies fever. Denies history of cyclic vomiting. She reports no other family members are ill. Patient does not work. Reports she has a little bit of headache but other than that no other symptoms. Denies fever. Denies pain with void. Patient has history of cholecystectomy in August. Reports she is been fine since that time. Patient does admit to smoking marijuana at least one joint a day since she was 16 years old. Denies abdominal pain at this time. TRAVEL OUTSIDE OF THE [place] IN LAST 30 DAYS: No - HPI Onset: Other - monday Onset/Duration: Persistent Quality of pain: Cramping Severity: None Associated symptoms: Vomiting Exacerbated by: Denies Relieved by: Denies Similar symptoms previously: No Recently seen / treated by doctor: No - Related Data Allergies/Adverse Reactions: No Known Allergies Allergy (Verified 03/18/19 11:56) Past Medical History - General Information source: Patient - Social History Smoking Status: Current Every Day Smoker Chew tobacco use (# tins/day): No Frequency of alcohol use: Occasional Drug Abuse: Marijuana Lives with: Family Family History: Reviewed & Not Pertinent Patient has suicidal ideation: No Patient has homicidal ideation: No - Medical History Medical History: Negative Renal/ Medical History: Denies: Hx Peritoneal Dialysis Past Surgical History: Reports: Hx Cholecystectomy, Hx Tonsillectomy - Immunizations Hx Diphtheria, Pertussis, Tetanus Vaccination: Yes - 2008 Review of Systems - Review of Systems Notes: Review HPI for review of systems., All other systems negative Physical Exam - Vital signs Vitals: Temp Pulse Resp BP Pulse Ox 98.0 F 67 16 152/93 H 97 03/18/19 11:59 03/18/19 11:59 03/18/19 11:59 03/18/19 11:59 03/18/19 11:59 - Notes Notes: PHYSICAL EXAMINATION: GENERAL: Nontoxic looking, no distress HEAD: Atraumatic, normocephalic. EYES: Pupils equal round , extraocular movements intact, sclera anicteric, conjunctiva are normal. ENT: nares patent, Moist mucous membranes. NECK: Normal range of motion, supple without lymphadenopathy LUNGS: CTAB and equal. No wheezes rales or rhonchi. HEART: Regular rate and rhythm without murmurs ABDOMEN: Soft, no tenderness. No guarding, no rebound BACK: Denies pain EXTREMITIES: Normal range of motion, NEUROLOGICAL: Cranial nerves grossly intact. PSYCH: Normal mood, normal affect. SKIN: Warm, Dry, normal turgor, no rashes or lesions noted Course - Re-evaluation Re-evalutation: 03/18/19 14:48 This 33-year-old female presents with vomiting since early Monday morning. Reports she did have diarrhea but has not had diarrhea since Monday. Denies fever. Reports she started off with lower abdominal pain but it does not hurt now. Reports some abdominal pain when she vomits. She reports she still vomiting even after she received Zofran. Labs show increased white count with H&H probably due to vomiting. Will treat with 2 L of fluid and Phenergan rectally. 03/18/19 16:11 Patient reports she is feeling much better. Asking for ice chips. We will do a p.o. challenge if she is able to hold fluids down will discharge 03/18/19 12:46 03/18/19 12:46 MCV 90 fl (80-97) 03/18/19 12:46 MCH 30.8 pg (27.0-33.4) 03/18/19 12:46 MCHC 34.1 g/dL (32.0-36.0) 03/18/19 12:46 RDW 14.0 % (11.5-14.0) 03/18/19 12:46 Seg Neutrophils % 88.9 % (42-78) H 03/18/19 12:46 Lymphocytes % 7.0 % (13-45) L 03/18/19 12:46 Monocytes % 3.6 % (3-13) 03/18/19 12:46 Eosinophils % 0.3 % (0-6) 03/18/19 12:46 Basophils % 0.2 % (0-2) 03/18/19 12:46 Absolute Neutrophils 14.9 10^3/uL (1.7-8.2) H 03/18/19 12:46 Absolute Lymphocytes 1.2 10^3/uL (0.5-4.7) 03/18/19 12:46 Absolute Monocytes 0.6 10^3/uL (0.1-1.4) 03/18/19 12:46 Absolute Eosinophils 0.1 10^3/uL (0.0-0.6) 03/18/19 12:46 Absolute Basophils 0.0 10^3/uL (0.0-0.2) 03/18/19 12:46 Chloride 104 mmol/L (98-107) 03/18/19 12:46 Carbon Dioxide 30 mmol/L (22-30) 03/18/19 12:46 Anion Gap 8 (5-19) 03/18/19 12:46 Est GFR ( Amer) > 60 (>60) 03/18/19 12:46 Est GFR (Non-Af Amer) > 60 (>60) 03/18/19 12:46 Glucose 109 mg/dL (75-110) 03/18/19 12:46 Calcium 10.0 mg/dL (8.4-10.2) 03/18/19 12:46 Total Bilirubin 0.7 mg/dL (0.2-1.3) 03/18/19 12:46 AST 40 U/L (14-36) H 03/18/19 12:46 ALT 40 U/L (9-52) 03/18/19 12:46 Alkaline Phosphatase 103 U/L (38-126) 03/18/19 12:46 Total Protein 7.7 g/dL (6.3-8.2) 03/18/19 12:46 Albumin 4.6 g/dL (3.5-5.0) 03/18/19 12:46 Lipase 25.3 U/L (23-300) 03/18/19 12:46 Urine Color ALIDA 03/18/19 12:46 Urine Appearance CLOUDY 03/18/19 12:46 Urine pH 6.0 (5.0-9.0) 03/18/19 12:46 Ur Specific [place] 1.032 03/18/19 12:46 Urine Protein 30 mg/dL (NEGATIVE) H 03/18/19 12:46 Urine Glucose (UA) NEGATIVE mg/dL (NEGATIVE) 03/18/19 12:46 Urine Ketones TRACE mg/dL (NEGATIVE) H 03/18/19 12:46 Urine Blood NEGATIVE (NEGATIVE) 03/18/19 12:46 Urine Nitrite NEGATIVE (NEGATIVE) 03/18/19 12:46 Ur Leukocyte Esterase NEGATIVE (NEGATIVE) 03/18/19 12:46 Urine WBC (Auto) 4 /HPF 03/18/19 12:46 Urine RBC (Auto) 1 /HPF 03/18/19 12:46 03/18/19 16:57 Patient drinking zhang shirley without complaints reports she feels much better. We will plan on discharging home with prescription of Phenergan suppositories. Patient was instructed on the importance of pushing fluids. Patient was also instructed on the correlation between marijuana smoking and cyclic vomiting. She was advised to not smoke marijuana she verbalized understanding to all instructions. - Vital Signs Vital signs: Temp Pulse Resp BP Pulse Ox 98.6 F 60 16 139/87 H 98 03/18/19 17:20 03/18/19 17:20 03/18/19 11:59 03/18/19 17:20 03/18/19 17:20 - Laboratory Result Diagrams: 03/18/19 12:46 03/18/19 12:46 Laboratory results interpreted by me: 03/18/19 03/18/19 03/18/19 12:46 12:46 12:46 WBC 16.8 H Hgb 16.1 H Hct 47.1 H Seg Neutrophils % 88.9 H Lymphocytes % 7.0 L Absolute Neutrophils 14.9 H AST 40 H Urine Protein 30 H Urine Ketones TRACE H Discharge - Discharge Clinical Impression: Vomiting Qualifiers: Vomiting type: unspecified Vomiting Intractability: non-intractable Nausea presence: unspecified Qualified Code(s): R11.10 - Vomiting, unspecified Condition: Stable Disposition: HOME, SELF-CARE Instructions: Antinausea Medication ([facility]), Intravenous (IV) Fluids ([facility]), Vomiting ([facility]) Additional Instructions: *You have been evaluated for nausea/vomiting *Insert medication as prescribed *Ensure adequate fluid intake as discussed to prevent dehydration *Follow up with a primary care provider within 5 days for recheck *Return to ED for worsening condition, changes, needs Monitor your blood pressure. Your blood pressure was elevated today. This may be because you were anxious, in pain or because you need medication. It is important to follow up with your primary care provider for full evaluation. Prescriptions: Promethazine HCl [Phenergan 25 mg Supp.rect] 25 mg WA Q4HP PRN #12 supp.rect PRN Reason: Forms: Elevated Blood Pressure, Parent Work Note Referrals: JUAN MANUEL AL MD [ACTIVE STAFF] - Follow up in 1 week
[2019-03-18] MEDS ORDERED: PROMETHAZINE HCL 25 MG SUPP (4 SUPP/ER DISP) PR ONE (16:55)
[2019-03-18 17:24] VITALS: BP 139/87
== END 2019-03-18 17:50 | disposition home or self-care (01) ==
LOC: ER 11:52
DX: R11.10 Vomiting, unspecified (principal); R19.7 Diarrhea, unspecified; R10.30 Lower abdominal pain, unspecified; F12.90 Cannabis use, unspecified, uncomplicated; F17.200 Nicotine dependence, unspecified, uncomplicated
CPT/HCPCS: 99284; 96361; 96374; 36415; 83690; 85025; 81025; 80053; 81001; J3490 ×2; J2405; J7030

== ENCOUNTER 2019-12-29 17:16 | Emergency (ER) | payer SELFPAY ==
[2019-12-29 17:57] LABS: ABSOLUTE BASOPHILS # (AUTO) 0.1 10^3/uL (0.0-0.2); ABSOLUTE EOSINOPHILS # (AUTO) 0.1 10^3/uL (0.0-0.6); ABSOLUTE LYMPHOCYTES (AUTO) 1.2 10^3/uL (0.5-4.7); ABSOLUTE MONOCYTES (AUTO) 0.8 10^3/uL (0.1-1.4); ABSOLUTE NEUT (AUTO) 13.3 10^3/uL (1.7-8.2); BASOPHILS % (AUTO) 0.4 % (0-2); EOSINOPHILS % (AUTO) 0.6 % (0-6); HEMATOCRIT 42.3 % (36.0-47.0); HEMOGLOBIN 14.5 g/dL (12.0-15.5); LYMPHOCYTES % (AUTO) 7.5 % (13-45); MEAN CORPUSCULAR HEMOGLOBIN 30.6 pg (27.0-33.4); MEAN CORPUSCULAR HGB CONC 34.3 g/dL (32.0-36.0); MEAN CORPUSCULAR VOLUME 89 fl (80-97); MONOCYTES % (AUTO) 5.2 % (3-13); PLATELET COUNT 251 10^3/uL (150-450); RED BLOOD COUNT 4.75 10^6/uL (3.72-5.28); SEGMENTED NEUTROPHILS % (AUTO) 86.3 % (42-78); TOTAL CELLS COUNTED % (AUTO) 100 %; WHITE BLOOD COUNT 15.4 10^3/uL (4.0-10.5)
[2019-12-29 18:05] LABS: APPEARANCE,URINE SLIGHTLY-CLOUDY; BILIRUBIN,URINE NEGATIVE (NEGATIVE); COLOR,URINE AMBER; GLUCOSE, URINE NEGATIVE (NEGATIVE); KETONES,URINE TRACE mg/dL (NEGATIVE); LEUKOCYTE ESTERASE,URINE NEGATIVE (NEGATIVE); NITRITE,URINE NEGATIVE (NEGATIVE); PROTEIN,URINE 30 mg/dL (NEGATIVE); URINE SPECIFIC GRAVITY 1.035
[2019-12-29 18:15] LABS: ALBUMIN 4.6 g/dL (3.5-5.0); ALKALINE PHOSPHATASE 94 U/L (38-126); ANION GAP 8 (5-19); ASPARTATE AMINO TRANSFERASE 56 U/L (14-36); BILIRUBIN,DIRECT 0.1 mg/dL (0.0-0.4); BLOOD UREA NITROGEN 13 mg/dL (7-20); CALCIUM 9.7 mg/dL (8.4-10.2); CARBON DIOXIDE 30 mmol/L (22-30); CHLORIDE 102 mmol/L (98-107); GLUCOSE 103 mg/dL (75-110); POTASSIUM 3.7 mmol/L (3.6-5.0); TOTAL PROTEIN 7.5 g/dL (6.3-8.2)
[2019-12-29] MEDS ORDERED: NORMAL SALINE 500 ML IV ONE (18:40)
[2019-12-29] MEDS ORDERED: PANTOPRAZOLE SODIUM 40 MG VIAL IV ONE (19:05)
[2019-12-29] MEDS ORDERED: PEG 3350/NA SULF,BICARB,CL/KCL 4000 ML PO ONE (19:14)
[2019-12-29] MEDS ORDERED: MINERAL OIL ENEMA 133 ML PR ONE (19:14)
[2019-12-29] MEDS ORDERED: SUCRALFATE 1 GM TABLET PO ONE (20:32)
[2019-12-29] MEDS ORDERED: METOCLOPRAMIDE HCL INJ/PF 10 MG/2 ML SDV IV ONE (20:32)
[2019-12-29] MEDS ORDERED: PEG 3350/NA SULF,BICARB,CL/KCL 4000 ML ONE (20:53)
[2019-12-29 21:11] VITALS: BP 135/99
--- NOTE | 2019-12-30 00:20 | ER Document Report ---
Entered by VIOLET SHULTZ SCRIBE 12/29/19 [id number] Acting as scribe for:JANINA BOSS DO ED GI/ - General Chief Complaint: Vomiting Stated Complaint: VOMITING Time Seen by Provider: 12/29/19 17:34 Mode of Arrival: Ambulatory Information source: Patient Notes: This 34-year-old female patient presents to the emergency department today with complaints of nausea and vomiting for the last 3 days. Patient states that 4 nights ago she consumed "way too much" EtOH and she thought that she was just hungover, but the nausea and vomiting has persisted. Patient states she thinks she is dehydrated. Patient has mild associated upper abdominal pain with this vomiting. Patient denies any falls or head injuries during the night of intoxication. Patient states that she has not really been able to keep anything down for the last few days. Patient states that earlier today she attempted to eat shrimp and hotdogs and predictably vomited shortly after. TRAVEL OUTSIDE OF THE [place] IN LAST 30 DAYS: No - Related Data Allergies/Adverse Reactions: No Known Allergies Allergy (Verified 12/29/19 19:40) Past Medical History - General Information source: Patient - Social History Smoking Status: Current Every Day Smoker Cigarette use (# per day): Yes Frequency of alcohol use: Heavy Lives with: Family Family History: Reviewed & Not Pertinent Renal/ Medical History: Denies: Hx Peritoneal Dialysis Past Surgical History: Reports: Hx Cholecystectomy, Hx Tonsillectomy - Immunizations Hx Diphtheria, Pertussis, Tetanus Vaccination: Yes - 2008 Review of Systems - Review of Systems Constitutional: No symptoms reported EENT: No symptoms reported Cardiovascular: No symptoms reported Respiratory: No symptoms reported Gastrointestinal: See HPI, Abdominal pain, Nausea, Vomiting Genitourinary: No symptoms reported Female Genitourinary: No symptoms reported Musculoskeletal: No symptoms reported Skin: No symptoms reported Hematologic/Lymphatic: No symptoms reported Neurological/Psychological: No symptoms reported -: Yes All other systems reviewed and negative Physical Exam - Vital signs Vitals: Temp Pulse BP Pulse Ox 98.1 F 60 146/89 H 100 12/29/19 17:21 12/29/19 17:21 12/29/19 17:21 12/29/19 17:21 - Notes Notes: Physical Exam: General: Alert, appears uncomfortable. HEENT: Normocephalic. Atraumatic. PERRL. Extraocular movements intact. Oropharynx clear. Dry mucous membranes. Neck: Supple. Non-tender. Respiratory: No respiratory distress. Clear and equal breath sounds bilaterally. Cardiovascular: Regular rate and rhythm. Abdominal: Mild left upper quadrant tenderness to palpation. No distension. Normal Bowel Sounds. Back: No gross abnormalities. Extremities: Moves all four extremities. Upper extremities: Normal inspection. Normal ROM. Lower extremities: Normal inspection. No edema. Normal ROM. Neurological: Normal cognition. AAOx4. Normal speech. Psychological: Normal affect. Normal Mood. Skin: Warm. Dry. Normal color. Course - Re-evaluation Re-evalutation: 12/30/19 00:19 Patient presents after having nausea which she feels is due to excessive alcohol consumption night. Also complaining of left upper quadrant/periumbilical pain. Patient has been unable to keep any p.o. fluids down until today. Received fluids. Receive Zofran, Reglan, Protonix, and Carafate. Lipase within normal limits. Patient is feeling much better after medications and fluids. No evidence for imaging as pain is resolved. Stable for discharge. Symptoms most consistent with gastritis. Follow-up with PMD and avoid excessive alcohol consumption. Understands and agrees with plan. Stable for discharge. - Vital Signs Vital signs: Temp Pulse Resp BP Pulse Ox 98.0 F 57 L 16 135/99 H 100 12/29/19 21:06 12/29/19 21:06 12/29/19 21:06 12/29/19 21:06 12/29/19 21:06 - Laboratory Result Diagrams: 12/29/19 17:35 12/29/19 17:35 Laboratory results interpreted by me: 12/29/19 12/29/19 12/29/19 17:35 17:35 17:42 WBC 15.4 H Lymph % (Auto) 7.5 L Absolute Neuts (auto) 13.3 H Seg Neutrophils % 86.3 H AST 56 H ALT 56 H Urine Protein 30 H Urine Ketones TRACE H Urine Urobilinogen 2.0 H Urine Ascorbic Acid 40 H Discharge - Discharge Clinical Impression: Dehydration Gastritis Qualifiers: Gastritis type: unspecified gastritis Chronicity: acute Gastritis bleeding: presence of bleeding unspecified Qualified Code(s): K29.00 - Acute gastritis without bleeding Condition: Stable Disposition: HOME, SELF-CARE Instructions: Dehydration ([facility]), Gastritis ([facility]) Prescriptions: Sucralfate [Carafate 1 gm Tablet] 1 gm PO ACHS #90 tablet Omeprazole 20 mg PO DAILY #20 capsule.dr Forms: Parent Work Note, Return to Work I personally performed the services described in the documentation, reviewed and edited the documentation which was dictated to the scribe in my presence, and it accurately records my words and actions.
== END 2019-12-29 22:19 | disposition home or self-care (01) ==
LOC: ER 17:16
DX: E86.0 Dehydration (principal); K29.00 Acute gastritis without bleeding; R11.2 Nausea with vomiting, unspecified; R10.10 Upper abdominal pain, unspecified; F17.210 Nicotine dependence, cigarettes, uncomplicated; Z90.49 Acquired absence of other specified parts of digestive tract
CPT/HCPCS: 99283; 96361; 96374; 96375; 36415; 83690; 85025; 81025; 80053; 81001; J2765; C9113; J7040; J3490

== ENCOUNTER 2020-01-01 08:08 | Emergency (ER) | payer SELFPAY ==
[2020-01-01] MEDS ORDERED: NORMAL SALINE 1000 ML 1,000 ML IV ONE (08:36)
[2020-01-01] MEDS ORDERED: ONDANSETRON HCL INJ/PF 4 MG/2 ML SDV IV ONE (08:36)
--- NOTE | 2020-01-01 08:44 | ER Document Report ---
ED General - General Chief Complaint: Vomiting Stated Complaint: VOMITING Time Seen by Provider: 01/01/20 08:29 Mode of Arrival: Ambulatory Information source: Patient TRAVEL OUTSIDE OF THE [place] IN LAST 30 DAYS: No - HPI Notes: Patient presents with abdominal pain and nausea vomiting. She states that approximately 6 days ago she was drinking alcohol heavily because she was upset. The following day she had some nausea vomiting. She states she came to the emergency department after this. At that time work-up essentially unremarkable and she was sent home with Carafate and some nausea medicine. She states that this is not working that she is still nauseated and vomiting and unable to tolerate liquids or solids. The abdominal pain is suprapubic and mild. Nothing makes it better or worse. Does not radiate. It is constant. No vaginal disch arge or bleeding. No problems with urine or stool. No fevers. - Related Data Allergies/Adverse Reactions: No Known Allergies Allergy (Verified 12/29/19 19:40) Past Medical History - General Information source: Patient - Social History Smoking Status: Current Every Day Smoker Frequency of alcohol use: None Drug Abuse: None Family History: Reviewed & Not Pertinent Renal/ Medical History: Denies: Hx Peritoneal Dialysis Past Surgical History: Reports: Hx Cholecystectomy, Hx Tonsillectomy - Immunizations Hx Diphtheria, Pertussis, Tetanus Vaccination: Yes - 2008 Review of Systems - Review of Systems Constitutional: denies: Chills, Fever Cardiovascular: denies: Chest pain, Palpitations Respiratory: denies: Cough, Short of breath -: Yes All other systems reviewed and negative Physical Exam - Vital signs Vitals: Temp 97.4 F 01/01/20 08:29 Interpretation: Normal - General General appearance: Appears well, Alert - HEENT Head: Normocephalic, Atraumatic Eyes: Normal Pupils: PERRL - Respiratory Respiratory status: No respiratory distress Chest status: Nontender Breath sounds: Normal Chest palpation: Normal - Cardiovascular Rhythm: Regular Heart sounds: Normal auscultation Murmur: No - Abdominal Inspection: Normal Distension: No distension Bowel sounds: Normal Tenderness: Tender - Mild suprapubic Organomegaly: No organomegaly - Back Back: Normal, Nontender - Extremities General upper extremity: Normal inspection, Nontender, Normal color, Normal ROM, Normal temperature General lower extremity: Normal inspection, Nontender, Normal color, Normal ROM, Normal temperature, Normal weight bearing. No: Christiane's sign - Neurological Neuro grossly intact: Yes Cognition: Normal Orientation: AAOx4 [place] Coma Scale Eye Opening: Spontaneous [place] Coma Scale Verbal: Oriented [place] Coma Scale Motor: Obeys Commands [place] Coma Scale Total: 15 Speech: Normal Motor strength normal: LUE, RUE, LLE, RLE Sensory: Normal - Psychological Associated symptoms: Normal affect, Normal mood - Skin Skin Temperature: Warm Skin Moisture: Dry Skin Color: Normal Course - Re-evaluation Re-evalutation: 01/01/20 10:50 Patient had 1 more episode of vomiting. Have not treated the patient with Reglan. She is feeling somewhat better. Patient states she does smoke marijuana daily. I have discussed cannabis hyperemesis syndrome with her. I recommended hot showers and capsaicin cream. I also discharged her home with Phenergan. - Vital Signs Vital signs: Temp Pulse Resp BP Pulse Ox 98.2 F 56 L 18 138/91 H 99 01/01/20 10:26 01/01/20 10:26 01/01/20 10:26 01/01/20 10:26 01/01/20 10:26 - Laboratory Result Diagrams: 01/01/20 08:39 01/01/20 08:39 Laboratory results interpreted by me: 01/01/20 01/01/20 01/01/20 08:21 08:39 08:39 WBC 12.1 H RDW 14.1 H Lymph % (Auto) 10.3 L Absolute Neuts (auto) 10.1 H Seg Neutrophils % 82.8 H Potassium 3.4 L AST 52 H ALT 142 H Urine Urobilinogen 2.0 H - Diagnostic Test Radiology reviewed: Image reviewed, Reports reviewed Discharge - Discharge Clinical Impression: Vomiting Qualifiers: Vomiting type: unspecified Vomiting Intractability: intractable Nausea presence: with nausea Qualified Code(s): R11.2 - Nausea with vomiting, unspecified Condition: Stable Disposition: HOME, SELF-CARE Instructions: Antinausea Medication ([facility]), Vomiting ([facility]) Additional Instructions: Please try capsaicin cream [id number] Prescriptions: Metoclopramide HCl [Reglan 10 mg Tablet] 1 tab PO Q6 3 Days #12 tablet Forms: Return to Work Referrals: [facility] [Provider Group] - Follow up in 1 week
[2020-01-01 08:53] LABS: ABSOLUTE BASOPHILS # (AUTO) 0.1 10^3/uL (0.0-0.2); ABSOLUTE EOSINOPHILS # (AUTO) 0.2 10^3/uL (0.0-0.6); ABSOLUTE LYMPHOCYTES (AUTO) 1.3 10^3/uL (0.5-4.7); ABSOLUTE MONOCYTES (AUTO) 0.6 10^3/uL (0.1-1.4); ABSOLUTE NEUT (AUTO) 10.1 10^3/uL (1.7-8.2); BASOPHILS % (AUTO) 0.5 % (0-2); EOSINOPHILS % (AUTO) 1.6 % (0-6); HEMATOCRIT 43.8 % (36.0-47.0); HEMOGLOBIN 15.5 g/dL (12.0-15.5); LYMPHOCYTES % (AUTO) 10.3 % (13-45); MEAN CORPUSCULAR HGB CONC 35.3 g/dL (32.0-36.0); MEAN CORPUSCULAR VOLUME 88 fl (80-97); MONOCYTES % (AUTO) 4.8 % (3-13); PLATELET COUNT 222 10^3/uL (150-450); RED BLOOD COUNT 4.98 10^6/uL (3.72-5.28); RED CELL DISTRIBUTION WIDTH 14.1 % (11.5-14.0); SEGMENTED NEUTROPHILS % (AUTO) 82.8 % (42-78); TOTAL CELLS COUNTED % (AUTO) 100 %; WHITE BLOOD COUNT 12.1 10^3/uL (4.0-10.5)
[2020-01-01 09:15] LABS: ALBUMIN 4.2 g/dL (3.5-5.0); ALKALINE PHOSPHATASE 95 U/L (38-126); ANION GAP 7 (5-19); ASPARTATE AMINO TRANSFERASE 52 U/L (14-36); BILIRUBIN,TOTAL 0.8 mg/dL (0.2-1.3); BLOOD UREA NITROGEN 8 mg/dL (7-20); CALCIUM 9.1 mg/dL (8.4-10.2); CARBON DIOXIDE 29 mmol/L (22-30); CHLORIDE 102 mmol/L (98-107); GLUCOSE 110 mg/dL (75-110); POTASSIUM 3.4 mmol/L (3.6-5.0); TOTAL PROTEIN 7.1 g/dL (6.3-8.2)
--- NOTE | 2020-01-01 09:33 | RADIOLOGY REPORT (SQ) ---
EXAM DESCRIPTION: CT ABD/PELVIS NO ORAL OR IV IMAGES COMPLETED DATE/TIME: 01/01/2020 9:04 am REASON FOR STUDY: ABD PAIN/VOMIT COMPARISON: Ultrasound of the abdomen from 08/28/2018. TECHNIQUE: CT scan of the abdomen and pelvis performed without intravenous or oral contrast. Images reviewed with lung, soft tissue, and bone windows. Reconstructed coronal and sagittal MPR images revi ewed. All images stored on PACS. All CT scanners at this facility use dose modulation, iterative reconstruction, and/or weight based d osing when appropriate to reduce radiation dose to as low as reasonably achievable (ALARA). [facility]: Dose Right [facility]: CareDose [facility]: Dose Right [facility]: Teradose 4D [facility]: [employer] RADIATION DOSE: CT Rad equipment meets quality standard of care and radiation dose reduction techniq ues were employed. CTDIvol: 13.5 mGy. DLP: 755 mGy-cm. LIMITATIONS: None. FINDINGS: LOWER CHEST: No significant findings. No nodules or infiltrates. NON-CONTRASTED LIVER, SPLEEN, ADRENALS: Evaluation is limited due to the absence of intravenous contr ast. The low attenuation of the hepatic parenchyma is indicative of underline hepatic steatosis. Th e spleen is normal in size. There is no adrenal mass. PANCREAS: No acute gross abnormality of the pancreas. GALLBLADDER: Surgically absent. RIGHT KIDNEY AND URETER: Evaluation is limited due to the absence of intravenous contrast. There is no hydronephrosis, nephrolithiasis, hydroureter or ureterolithiasis. LEFT KIDNEY AND URETER: Evaluation is limited due to the absence of intravenous contrast. There is n o hydronephrosis, nephrolithiasis, hydroureter or ureterolithiasis. AORTA AND RETROPERITONEUM: No aneurysm of the abdominal aorta. No retroperitoneal adenopathy, hemorr irvin or mass. BOWEL AND PERITONEAL CAVITY: Colonic diverticulosis without diverticulitis. There is no bowel obstru ction, bowel wall thickening or pericolonic/ perienteric inflammation. There is no mesenteric adenop athy, free intraperitoneal fluid or mesenteric/ omental inflammation. APPENDIX: Normal. PELVIS, BLADDER, AND ABDOMINAL WALL:No abdominal wall mass or hernia. There is no abnormality of the uterus or adnexa that is apparent on CT. The urinary bladder is nondistended. BONES: No fracture or osseous lesion. OTHER: No other finding. IMPRESSION: 1. No acute intra-abdominal abnormality. 2. Hepatic steatosis, status post cholecystectomy, and colonic diverticulosis. COMMENT: Quality ID # [id number]: Final reports with documentation of one or more dose reduction techniques (e.g., Automated exposure control, adjustment of the mA and/or kV according to patient size, use of iterative reconstruction technique) TECHNICAL DOCUMENTATION: JOB ID: [id number] 2010 [employer]- All Rights Reserved Reading location - IP/workstation name: [email or web address]
[2020-01-01 09:38] LABS: APPEARANCE,URINE SLIGHTLY HAZY; BILIRUBIN,URINE NEGATIVE (NEGATIVE); COLOR,URINE AMBER; GLUCOSE, URINE NEGATIVE (NEGATIVE); KETONES,URINE NEGATIVE (NEGATIVE); PROTEIN,URINE NEGATIVE (NEGATIVE); URINE SPECIFIC GRAVITY 1.028
[2020-01-01 09:39] LABS: CALCIUM OXALATE CRYSTALS,UR FEW /HPF; RBC,URINE NONE SEEN /HPF
[2020-01-01] MEDS ORDERED: METOCLOPRAMIDE HCL INJ/PF 10 MG/2 ML SDV IV ONE ×2 (10:23→10:27)
[2020-01-01 10:27] VITALS: BP 138/91
== END 2020-01-01 11:14 | disposition home or self-care (01) ==
LOC: ER 08:08
DX: R11.2 Nausea with vomiting, unspecified (principal); R10.30 Lower abdominal pain, unspecified; F17.200 Nicotine dependence, unspecified, uncomplicated; Z90.49 Acquired absence of other specified parts of digestive tract
CPT/HCPCS: 99284; 96361; 96374; 36415; 83690; 85025; 81025; 80053; 81001; 74176; J2765; J2405; J7030

== ENCOUNTER 2020-07-07 08:18 | Emergency (ER) | payer SELFPAY ==
[2020-07-07] MEDS ORDERED: ONDANSETRON HCL INJ/PF 4 MG/2 ML SDV IV ONE (09:46)
[2020-07-07] MEDS ORDERED: METOCLOPRAMIDE HCL INJ/PF 10 MG/2 ML SDV IV ONE (10:13)
[2020-07-07] MEDS ORDERED: NORMAL SALINE 1000 ML 1,000 ML IV ONE ×2 (10:13→12:22)
--- NOTE | 2020-07-07 10:35 | ER Document Report ---
Entered by THEODORA KING SCRIBE 07/07/20 0955 Acting as scribe for:MAHOGANY GARCIA MD ED GI/ - General Chief Complaint: Nausea/Vomiting Stated Complaint: NAUSEA Time Seen by Provider: 07/07/20 09:53 Primary Care Provider: LAUREN,NO [Primary Care Provider] - Follow up as needed Mode of Arrival: Ambulatory Information source: Patient Notes: This 35 year old female patient presents to the ED today with complaints of intermittent episodes of nausea and vomiting for the last x5 days. Patient states she has been taking leftover Phenergan and Zofran from her prior visits in 12/2019; she was here with the same complaint related to heavy EtOH consumption, but reports that she has only been drinking about twice a week, none since symptom onset. She states that the vomiting is "causing my breathing to go crazy," but denies cough, fever, or loss of smell. She does not know if she is . Last menstrual cycle was on 06/08, next one to start in a couple of days. Periods are irregular and being late like this is not unusual. TRAVEL OUTSIDE OF THE [place] IN LAST 30 DAYS: No - Related Data Allergies/Adverse Reactions: No Known Allergies Allergy (Verified 12/29/19 19:40) Past Medical History - General Information source: Patient - Social History Smoking Status: Current Some Day Smoker Cigarette use (# per day): Yes - Patient reports smoking 1 pack every x2 weeks Chew tobacco use (# tins/day): No Smoking Education Provided: No Frequency of alcohol use: x2/week Family History: Reviewed & Not Pertinent Patient has suicidal ideation: No Patient has homicidal ideation: No Past Surgical History: Reports: Hx Cholecystectomy, Hx Tonsillectomy - Immunizations Hx Diphtheria, Pertussis, Tetanus Vaccination: Yes - 2008 Review of Systems - Review of Systems Constitutional: See HPI. denies: Fever EENT: See HPI, Other - loss of smell Cardiovascular: No symptoms reported Respiratory: See HPI. denies: Cough Gastrointestinal: See HPI, Nausea, Vomiting Genitourinary: No symptoms reported Female Genitourinary: Last menstrual period - 06/08/2020, Irregular period Musculoskeletal: No symptoms reported Skin: No symptoms reported Hematologic/Lymphatic: No symptoms reported Neurological/Psychological: No symptoms reported -: Yes All other systems reviewed and negative Physical Exam - Vital signs Vitals: Temp Pulse Resp BP Pulse Ox 97.5 F 72 18 156/92 H 100 07/07/20 08:23 07/07/20 08:23 07/07/20 08:23 07/07/20 08:23 07/07/20 08:23 Interpretation: Normal - General General appearance: Alert In distress: None - HEENT Head: Normocephalic, Atraumatic Eyes: Normal Pupils: PERRL - Respiratory Respiratory status: No respiratory distress Chest status: Nontender Breath sounds: Normal Chest palpation: Normal - Cardiovascular Rhythm: Regular Heart sounds: Normal auscultation Murmur: No - Abdominal Inspection: Obese Distension: No distension Bowel sounds: Normal Tenderness: Nontender - Abdomen soft Organomegaly: No organomegaly - Back Back: Normal, Nontender - Extremities General upper extremity: Normal inspection General lower extremity: Normal inspection. No: Edema - Neurological Neuro grossly intact: Yes Orientation: AAOx4 [place] Coma Scale Eye Opening: Spontaneous [place] Coma Scale Verbal: Oriented [place] Coma Scale Motor: Obeys Commands [place] Coma Scale Total: 15 - Psychological Associated symptoms: Normal affect, Normal mood - Skin Skin Temperature: Warm Skin Moisture: Dry Skin Color: Normal Course - Re-evaluation Re-evalutation: 07/07/20 14:46 Patient reports that her nauseousness is much better, she has occasional mild flashes of nausea but nothing enough to throw up. She thinks her nauseousness now is due to not having eaten in a good while. - Vital Signs Vital signs: Temp Pulse Resp BP Pulse Ox 98.8 F 80 16 128/78 H 100 07/07/20 12:34 07/07/20 12:34 07/07/20 12:34 07/07/20 12:34 07/07/20 12:34 - Laboratory Result Diagrams: 07/07/20 10:20 07/07/20 10:20 Laboratory results interpreted by me: 07/07/20 07/07/20 07/07/20 10:20 10:20 10:32 WBC 13.7 H Lymph % (Auto) 5.4 L Absolute Neuts (auto) 11.9 H Seg Neutrophils % 87.0 H ALT 93 H Urine Protein 100 H Urine Ketones TRACE H Urine Urobilinogen 2.0 H Discharge - Discharge Clinical Impression: Nausea and vomiting Qualifiers: Vomiting type: unspecified Vomiting Intractability: non-intractable Qualified Code(s): R11.2 - Nausea with vomiting, unspecified Condition: Stable Disposition: HOME, SELF-CARE Additional Instructions: Nausea or Vomiting, Nonspecific Vomiting (or nausea without vomiting) can be caused by many different problems. Of course, it can mean that something's wrong with the stomach, such as "stomach flu," ulcers, or inflammation. But it can also be a symptom of a problem that has nothing to do with the stomach or intestines. Vomiting is common with severe headaches, earaches, and tonsillitis. We see it with pneumonia or heart attacks. Drugs can cause nausea. Many abdominal problems cause vomiting; for example, gallstones, kidney stones, pancreatitis, and intestinal obstruction (blocked bowels). In most cases, curing the vomiting depends on fixing the problem that caused it. For temporary relief, we may use an anti-nausea medicine. For home use, we can prescribe suppositories, chewable pills, pills that dissolve in the mouth, or liquid anti-nausea drugs. If the vomiting seems to be caused by a problem in the stomach, acid-suppressing drugs may be prescribed as well. It's important to avoid dehydration. Sip clear liquids. Take increasing amounts of fluid over the first 24 hours. Then start small amounts of bland foods (such as dry toast, applesauce, mashed potato). Avoid aspirin, tobacco, and alcohol. Gradually resume your usual diet. If the vomiting worsens, if the problem that's making you vomit worsens, or if there's evidence of bleeding in the stomach (such as black, tarry stool, bloody or black vomit, or lightheadedness), you should return immediately. Call your doctor if you aren't improved in 24 to 36 hours. Take the medication as prescribed for nausea if needed. Drink plenty of cool clear liquids and eat a light diet. Follow-up with your primary care provider if not improving. RETURN TO THE EMERGENCY ROOM IF ANY NEW OR WORSENING SYMPTOMS. Prescriptions: Metoclopramide HCl [Reglan 10 mg Tablet] 10 mg PO ASDIR PRN #20 tablet PRN Reason: Referrals: LOCALMD,NO [Primary Care Provider] - Follow up as needed I personally performed the services described in the documentation, reviewed and edited the documentation which was dictated to the scribe in my presence, and it accurately records my words and actions.
[2020-07-07 10:37] LABS: ABSOLUTE EOSINOPHILS # (AUTO) 0.2 10^3/uL (0.0-0.6); ABSOLUTE LYMPHOCYTES (AUTO) 0.7 10^3/uL (0.5-4.7); ABSOLUTE MONOCYTES (AUTO) 0.8 10^3/uL (0.1-1.4); ABSOLUTE NEUT (AUTO) 11.9 10^3/uL (1.7-8.2); BASOPHILS % (AUTO) 0.3 % (0-2); EOSINOPHILS % (AUTO) 1.5 % (0-6); HEMATOCRIT 44.1 % (36.0-47.0); HEMOGLOBIN 15.2 g/dL (12.0-15.5); LYMPHOCYTES % (AUTO) 5.4 % (13-45); MEAN CORPUSCULAR HEMOGLOBIN 31.5 pg (27.0-33.4); MEAN CORPUSCULAR HGB CONC 34.4 g/dL (32.0-36.0); MEAN CORPUSCULAR VOLUME 92 fl (80-97); MONOCYTES % (AUTO) 5.8 % (3-13); PLATELET COUNT 214 10^3/uL (150-450); RED BLOOD COUNT 4.81 10^6/uL (3.72-5.28); RED CELL DISTRIBUTION WIDTH 13.8 % (11.5-14.0); TOTAL CELLS COUNTED % (AUTO) 100 %; WHITE BLOOD COUNT 13.7 10^3/uL (4.0-10.5)
[2020-07-07 10:47] LABS: AMORPHOUS SEDIMENT,URINE 1+ /HPF; APPEARANCE,URINE CLOUDY; BILIRUBIN,URINE NEGATIVE (NEGATIVE); COLOR,URINE YELLOW; GLUCOSE, URINE NEGATIVE (NEGATIVE); KETONES,URINE TRACE mg/dL (NEGATIVE); LEUKOCYTE ESTERASE,URINE NEGATIVE (NEGATIVE); NITRITE,URINE NEGATIVE (NEGATIVE); PROTEIN,URINE 100 mg/dL (NEGATIVE); URINE SPECIFIC GRAVITY 1.027
[2020-07-07 10:59] LABS: ALBUMIN 4.1 g/dL (3.5-5.0); ALKALINE PHOSPHATASE 109 U/L (38-126); ANION GAP 7 (5-19); ASPARTATE AMINO TRANSFERASE 34 U/L (14-36); BILIRUBIN,DIRECT 0.1 mg/dL (0.0-0.4); BILIRUBIN,TOTAL 0.7 mg/dL (0.2-1.3); BLOOD UREA NITROGEN 9 mg/dL (7-20); CALCIUM 9.4 mg/dL (8.4-10.2); CARBON DIOXIDE 27 mmol/L (22-30); CHLORIDE 105 mmol/L (98-107); GLUCOSE 102 mg/dL (75-110); POTASSIUM 4.2 mmol/L (3.6-5.0); TOTAL PROTEIN 6.7 g/dL (6.3-8.2)
[2020-07-07 15:03] VITALS: BP 127/84
== END 2020-07-07 15:05 | disposition home or self-care (01) ==
LOC: ER 08:18
DX: R11.2 Nausea with vomiting, unspecified (principal); F17.210 Nicotine dependence, cigarettes, uncomplicated; R43.9 Unspecified disturbances of smell and taste; Z90.49 Acquired absence of other specified parts of digestive tract
CPT/HCPCS: 99284; 96361; 96374; 96375; 36415; 84703; 85025; 80053; 81001; J2765; J2405; J7030